=== PATIENT | male | born 1965 | race Caucasian/White ===

== ENCOUNTER 2022-01-25 15:11 | Emergency (ER) | payer OTHER ==
[~2022-01-25] VITALS: Ht 180.3 cm; Wt 89.4 kg
[~2022-01-25 15:11] MED LIST: ANTIVERT/2525 M1 PO; VENTOLIN H0.09 MG/AC INH; ZOFRAN ODT4 MG SL
[2022-01-25 15:59] LABS: HEMATOCRIT 43.6 % (42.0-52.0); MEAN CORPUSCULAR HGB CONC 34.4 g/dl (33.0-37.0); MEAN PLATELET VOLUME 11.8 fl (9.6-12.3); PLATELET COUNT AUTOMATED 232 10*3/uL (130-400); RED BLOOD COUNT 4.54 10*6/uL (4.50-5.90); RED CELL DISTRI WIDTH 11.9 % (0-14.5); WHITE BLOOD COUNT 21.1 10*3/uL (4.8-10.8)
[2022-01-25 16:05] LABS: MANUAL DIFF REFLEX YES
[2022-01-25 16:07] LABS: ALKALINE PHOSPHATASE 106 U/L (45-117); BUN 8 mg/dl (7-24); CHLORIDE 104 mmol/L (98-107); CREATININE 1.02 mg/dL (0.70-1.30); SGOT/AST 25 IU/L (3-35); SGPT/ALT 45 U/L (12-78); SODIUM 137 mmol/L (136-145); TOTAL PROTEIN 7.2 gm/dL (6.4-8.2)
[2022-01-25 16:22] LABS: PLATELET SUFFICIENCY NORMAL (NORMAL); TOTAL CELLS COUNTED 100 #CELLS
[2022-01-25] MEDS ORDERED: ZESTRIL10 MG PO (18:58)
== END 2022-01-25 19:13 | disposition home or self-care (01) ==
LOC: ED 15:11
PROVIDERS: Emergency Medicine
DX: I10 Essential (primary) hypertension (principal)